=== PATIENT | female | born 1980 | race Caucasian/White ===

== ENCOUNTER 2019-10-25 21:17 | Emergency (ER) | payer MEDICAID, OTHER ==
[~2019-10-25] VITALS: Ht 165.1 cm; Wt 79.4 kg
[2019-10-25 21:20] VITALS: BP_SYST 130
== END 2019-10-25 21:54 | disposition left against medical advice (07) ==
LOC: SED 21:17
DX: H57.11 Ocular pain, right eye (principal)
CPT/HCPCS: 99282